=== PATIENT | male | born 1945 | race Caucasian/White ===

== ENCOUNTER 2020-10-23 22:13 | Inpatient (IN) | payer OTHER ==
[~2020-10-23] VITALS: Ht 188 cm; Wt 81.6 kg
[2020-10-23 22:58] LABS: HEMOGLOBIN 17.2 gm/dl (14.0-17.5); RED BLOOD COUNT 5.03 M/UL (4.20-5.50); WHITE BLOOD COUNT 10.9 K/UL (4.5-11.0)
[2020-10-23 23:25] LABS: BUN/CREATININE RATIO 8 (0-10)
[2020-10-24 05:08] LABS: BUN/CREATININE RATIO 6 (0-10)
[2020-10-25 03:34] LABS: HEMOGLOBIN 12.9 gm/dl (14.0-17.5); RED BLOOD COUNT 3.86 M/UL (4.20-5.50); WHITE BLOOD COUNT 15.3 K/UL (4.5-11.0)
[2020-10-25 04:00] LABS: BUN/CREATININE RATIO 14 (0-10)
[2020-10-25] MEDS ORDERED: ELIQUIS 2.5 MG2.5 MG PO (09:48)
[2020-10-25] MEDS ORDERED: LISINOPRIL10 MG PO (10:52)
[2020-10-25] MEDS ORDERED: HYDROCODON-ACE1 EAC2 PO (10:52)
--- NOTE | 2020-10-25 13:42 | NUR ---
PATIENT WAS GIVEN DOSE OF CHLORDIAZEPOXIDE 25 MG ( WAS GIVEN 2 TABS FOR 50MG DOSE ORDERED) AT 1325 SYSTEM FROZE AND DID NOT DOCUMENT THAT THE MEDICATION WAS GIVEN. PATIENT WAS GIVEN DOSE.
== END 2020-10-25 12:58 | disposition home or self-care (01) | DRG 522 ==
LOC: ER1 22:13 → CDU 10-24 00:21 → M/S 10-24 08:01
PROVIDERS: Internal Medicine; Orthopaedic Surgery; Physician Assistant; ADMIT Internal Medicine
PROC: 0SR901A Replacement of Right Hip Joint with Metal Synthetic Substitute, Uncemented, Open Approach (ICD-10-PCS; principal; 2020-10-24 09:00)
DX: S72.091A Other fracture of head and neck of right femur, initial encounter for closed fracture (principal); E87.1 Hypo-osmolality and hyponatremia; W18.39XA Other fall on same level, initial encounter; Z20.822 Contact with and (suspected) exposure to COVID-19; I10 Essential (primary) hypertension; F10.10 Alcohol abuse, uncomplicated; H40.9 Unspecified glaucoma; F17.200 Nicotine dependence, unspecified, uncomplicated
CPT/HCPCS: 36415; 72170; 73502; 76000; 80048; 80053; 80307; 82550; 82553; 82607; 82746; 83036; 83735; 83874; 83930; 83935; 84100; 84300; 84439; 84443; 84484; 85025; 85652; 86140; 93005; 94760; 96374; 96375; 97110-GP-CQ; 97116-GP-CQ; 97161; 97165; 97535; 99285; C1776; J0171; J0360; J0690; J1100; J1650; J2001; J2270; J2405; J2704; J2710; J2795; J3010; J3370; J3480; J7050; J7120; U0002